=== PATIENT | male | born 2000 | race African-American/Black ===

== ENCOUNTER 2018-05-02 21:50 | Emergency (ER) | payer OTHER ==
[2018-05-02 21:57] VITALS: BP 131/60; PULSE 82; RESP 19; TEMP 98.7
[2018-05-02] MEDS ORDERED: ACETAMINOPHEN TAB 325 MG TAB PO STA (22:09)
--- NOTE | 2018-05-02 22:48 | XR ---
EXAMINATION TYPE: XR elbow complete LT DATE OF EXAM: 05/02/2018 COMPARISON: NONE HISTORY: Elbow pain TECHNIQUE: 3 views FINDINGS: I see no fracture nor dislocation. Joint spaces are normal. There is no sign of elbow joint effusion. IMPRESSION: Negative left elbow exam.
--- NOTE | 2018-05-02 23:00 | ED ---
Upper Extremity HPI - General Chief Complaint: Extremity Injury, Upper Stated Complaint: Lt elbow injury Time Seen by Provider: 05/02/18 21:57 Source: patient Mode of arrival: ambulatory Limitations: no limitations - History of Present Illness Initial Comments: 17-year-old male patient presents to the emergency department today for evaluation of left elbow injury. Patient states proximal one hour prior to arrival he was playing basketball when he had a fall on his outstretched left arm. He states that his left elbow dislocated and relocated with the assistance of the clinical provider trainer that was present. Patient states he is still having significant discomfort to the left elbow and reports difficulty with full extension. He denies any numbness or tingling to the extremity. Denies any previous elbow injury. He denies hitting his head or losing consciousness during the fall. Denies any other injuries. Patient denies any headache, neck pain, back pain, chest pain, shortness of breath, dizziness, weakness, abdominal pain, nausea, vomiting, or difficulties with bowel movements or urination. - Related Data Home Medications Medication Instructions Recorded Confirmed Ibuprofen [Motrin Ib] 400 mg PO BID 05/02/18 05/02/18 Naproxen [Naprosyn] 500 mg PO DAILY 05/02/18 05/02/18 Allergies Allergy/AdvReac Type Severity Reaction Status Date / Time montelukast [From Singulair] AdvReac Severe Hallucinati Verified 05/02/18 22:22 ons Review of Systems ROS Statement: Those systems with pertinent positive or pertinent negative responses have been documented in the HPI. ROS Other: All systems not noted in ROS Statement are negative. Past Medical History Past Medical History: No Reported History History of Any Multi-Drug Resistant Organisms: None Reported Past Surgical History: Appendectomy Past Psychological History: No Psychological Hx Reported Smoking Status: Never smoker Past Alcohol Use History: None Reported Past Drug Use History: None Reported General Exam Limitations: no limitations General appearance: alert, in no apparent distress, other (This is a well- developed, well-nourished adult male patient in no acute distress. Vital signs upon presentation are temperature 98.7F, pulse 82, respirations 19, blood pressure 131/60, pulse ox 97% on room air.) Eye exam: Present: normal appearance, PERRL, EOMI. Absent: scleral icterus, conjunctival injection, periorbital swelling ENT exam: Present: normal exam, mucous membranes moist Neck exam: Present: normal inspection, full ROM, other (Nontender, no step-off, no deformity to firm midline palpation of the posterior cervical spine. Full range of motion without pain or limitation.). Absent: tenderness, meningismus, lymphadenopathy Respiratory exam: Present: normal lung sounds bilaterally. Absent: respiratory distress, wheezes, rales, rhonchi, stridor Extremities exam: Present: full ROM, normal capillary refill, other (Patient has soft tissue swelling noted over the extensor surface of the left elbow. Skin is warm and dry. Cap refills less than 3 seconds. Radial pulses 2+ and equal bilaterally.). Absent: normal inspection, tenderness, pedal edema, joint swelling, calf tenderness Back exam: Present: normal inspection, other (Nontender, no step-off, no deformity to firm midline palpation of the thoracic and lumbar vertebrae. Full range of motion without pain or limitation.) Neurological exam: Present: alert, oriented X3, CN II-XII intact Psychiatric exam: Present: normal affect, normal mood Skin exam: Present: warm, dry, intact, normal color. 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 Physical examination did reveal some soft tissue swelling over the extensor surface of the left elbow. Neurovascular status was intact. X-ray of the left elbow showed no acute osseous abnormalities or evidence of joint effusion. Patient is placed in an Jean-Pierre wrap. Is instructed to follow-up with orthopedics for further evaluation. Return parameters were discussed in detail. He verbalizes understanding and agrees with this plan. Disposition Clinical Impression: Dislocation of left elbow Disposition: HOME SELF-CARE Condition: Good Instructions: Elbow Dislocation (ED) Additional Instructions: Rest, ice, elevate the left elbow. He is Jean-Pierre wrap for comfort and support. Follow-up with orthopedic physician for further evaluation and clearance to return to play. Take Tylenol Motrin for pain control. Return immediately for any new, worsening, or concerning symptoms Is patient prescribed a controlled substance at d/c from ED?: No Referrals: None,Stated [Primary Care Provider] - 1-2 days Ryan Reeder MD [Medical Doctor] - 1-2 days Time of Disposition: 23:00
== END 2018-05-02 23:25 | disposition home or self-care (01) ==
LOC: EC 21:50
DX: S53.105A Unspecified dislocation of left ulnohumeral joint, initial encounter (principal); Z79.1 Long term (current) use of non-steroidal anti-inflammatories (NSAID); Z88.8 Allergy status to other drugs, medicaments and biological substances; W19.XXXA Unspecified fall, initial encounter; Y93.67 Activity, basketball
CPT/HCPCS: 99283